=== PATIENT | female | born 1980 | race Hispanic/Latino ===

== ENCOUNTER 2017-02-28 14:35 | Emergency (ER) | payer OTHER ==
[2017-02-28] MEDS ORDERED: SODIUM CHLORIDE 0.9% 1000ML 1,000 ML IV ONE (14:57)
[2017-02-28 15:07] LABS: BASOPHILS % (AUTO) 0.2 % (0.0-5.0); EOSINOPHILS % (AUTO) 0.6 % (0.0-8.0); HEMATOCRIT 32.9 % (36-48); LYMPHOCYTES % (AUTO) 15.7 % (21.0-51.0); MEAN CORPUSCULAR HEMOGLOBIN 24.6 pg (27.0-33.0); MEAN CORPUSCULAR HGB CONC 32.7 g/dL (32.0-36.0); MEAN CORPUSCULAR VOLUME 75.1 fL (79-99); MONOCYTES % (AUTO) 4.6 % (3.0-13.0); NEUTROPHILS % (AUTO) 78.9 % (40.0-77.0); PLATELET COUNT (AUTO) 310 K/uL (130-400); RED BLOOD CELL COUNT(AUTO) 4.38 MIL/uL (4.00-5.50); RED CELL DISTRIBUTION WIDTH 15.7 % (11.0-15.5); WHITE BLOOD COUNT (AUTO) 9.9 K/uL (4.8-10.8)
== END 2017-02-28 17:24 | disposition home or self-care (01) ==
LOC: EDH 14:35
DX: N92.0 Excessive and frequent menstruation with regular cycle (principal)
CPT/HCPCS: 36415; 84702; 85025; 86900; 86901; 96360; 99284; J7030

== ENCOUNTER 2017-03-28 11:43 | Emergency (ER) | payer OTHER ==
[2017-03-28 12:33] LABS: BASOPHILS % (AUTO) 0.2 % (0.0-5.0); EOSINOPHILS % (AUTO) 0.2 % (0.0-8.0); HEMATOCRIT 35.5 % (36-48); LYMPHOCYTES % (AUTO) 11.8 % (21.0-51.0); MEAN CORPUSCULAR HGB CONC 32.8 g/dL (32.0-36.0); MEAN CORPUSCULAR VOLUME 79.3 fL (79-99); MONOCYTES % (AUTO) 3.6 % (3.0-13.0); NEUTROPHILS % (AUTO) 84.2 % (40.0-77.0); PLATELET COUNT (AUTO) 271 K/uL (130-400); RED BLOOD CELL COUNT(AUTO) 4.47 MIL/uL (4.00-5.50); RED CELL DISTRIBUTION WIDTH 21.4 % (11.0-15.5); WHITE BLOOD COUNT (AUTO) 8.7 K/uL (4.8-10.8)
[2017-03-28 12:45] LABS: CREATININE 0.7 mg/dL (0.5-1.5); POTASSIUM 3.8 mmol/L (3.5-5.1)
[2017-03-28 13:06] LABS: APPEARANCE,URINE CLOUDY (CLEAR); BILIRUBIN,URINE NEGATIVE (NEGATIVE); GLUCOSE, URINE (UA) NEGATIVE (NEGATIVE); KETONES,URINE NEGATIVE (NEGATIVE); LEUKOCYTE ESTERASE ,URINE NEGATIVE (NEGATIVE); NITRATE,URINE NEGATIVE (NEGATIVE); OCCULT BLOOD,URINE LARGE (NEGATIVE); PH,URINE 5.5 (5.0-8.0); PROTEIN,URINE TRACE (NEGATIVE); UROBILINOGEN,URINE 0.2 mg/dL (0.2-1.0)
[2017-03-28 13:18] LABS: COLOR,URINE PINK (YELLOW)
[2017-03-28 13:20] LABS: BACTERIA,URINE None Seen /HPF (None Seen); RBC,URINE >100 /HPF (0-1); WBC,URINE None Seen /HPF (0-1)
[2017-03-28 13:21] LABS: SQUAMOUS EPITHELIAL CELL,UR 0-2 /LPF (0-2)
[2017-03-28] MEDS ORDERED: IOPAMIDOL-370 75 ML VIAL IV ONE (15:09)
== END 2017-03-28 16:52 | disposition home or self-care (01) ==
LOC: EDH 11:43
DX: N85.8 Other specified noninflammatory disorders of uterus (principal); K62.5 Hemorrhage of anus and rectum
CPT/HCPCS: 36415; 74177; 76856; 80048; 81001; 84702; 85025; 99285; Q9967

== ENCOUNTER 2017-06-02 06:49 | Day surgery (SDC) | payer OTHER ==
[~2017-06-02] VITALS: Ht 167.6 cm; Wt 62.0 kg
[~2017-06-02 06:49] MED LIST: SODIUM CHLORIDE 0.9% 1000ML 1,000 ML IV ONE
[2017-06-02 07:22] VITALS: BP 123/50
[2017-06-02] MEDS ORDERED: PROPOFOL 10 MG/ML 20ML VIAL IV ONE ×2 (08:27→08:28)
[2017-06-02 08:46] VITALS: BP 86/49
== END 2017-06-02 09:25 ==
LOC: DAH 06:49
PROVIDERS: ATTEND Internal Medicine Gastroenterology
DX: K92.1 Melena (principal); K64.8 Other hemorrhoids; K57.30 Diverticulosis of large intestine without perforation or abscess without bleeding
CPT/HCPCS: 36415; 84703; A4606; J2704; J7030

== ENCOUNTER 2022-06-07 16:52 | Emergency (ER) | payer OTHER ==
[~2022-06-07] VITALS: Ht 165.1 cm; Wt 67.6 kg
[~2022-06-07 16:52] MED LIST changes: -SODIUM CHLORIDE 0.9% 1000ML 1,000 ML IV ONE; +[UNRECOGNIZED DRUG - OTHER] PO
[2022-06-07 17:36] LABS: BASOPHILS % (AUTO) 0.4 % (0.0-5.0); EOSINOPHILS % (AUTO) 0.5 % (0.0-8.0); HEMATOCRIT 36.8 % (36-48); LYMPHOCYTES % (AUTO) 17.8 % (21.0-51.0); MEAN CORPUSCULAR HEMOGLOBIN 24.4 pg (27.0-33.0); MEAN CORPUSCULAR VOLUME 78.8 fL (79-99); MONOCYTES % (AUTO) 6.2 % (3.0-13.0); NEUTROPHILS % (AUTO) 74.6 % (40.0-77.0); PLATELET COUNT (AUTO) 328 K/uL (130-400); RED BLOOD CELL COUNT(AUTO) 4.67 MIL/uL (4.00-5.50); RED CELL DISTRIBUTION WIDTH 17.4 % (11.0-15.5); WHITE BLOOD COUNT (AUTO) 10.9 K/uL (4.8-10.8)
[2022-06-07 17:48] LABS: APPEARANCE,URINE CLEAR (CLEAR); BILIRUBIN,URINE NEGATIVE (NEGATIVE); COLOR,URINE COLORLESS (YELLOW); GLUCOSE, URINE (UA) NEGATIVE (NEGATIVE); KETONES,URINE NEGATIVE (NEGATIVE); LEUKOCYTE ESTERASE ,URINE NEGATIVE Leu/uL (NEGATIVE); NITRATE,URINE NEGATIVE (NEGATIVE); OCCULT BLOOD,URINE NEGATIVE (NEGATIVE); PROTEIN,URINE NEGATIVE (NEGATIVE); UROBILINOGEN,URINE 0.2 mg/dL (0.2-1.0)
[2022-06-07 17:54] LABS: CREATININE 0.8 mg/dL (0.5-1.5); POTASSIUM 3.5 mmol/L (3.5-5.1)
[2022-06-07 17:58] LABS: ALBUMIN 3.9 g/dL (3.5-5.0)
[2022-06-07 20:08] LABS: CREATINE KINASE, TOTAL 38 U/L (21-232); MYOGLOBIN 19 ng/mL (10-92)
[2022-06-07 21:05] VITALS: BP 132/76
== END 2022-06-07 21:18 | disposition home or self-care (01) ==
LOC: EDH 16:52
DX: R55 Syncope and collapse (principal); Z98.890 Other specified postprocedural states
CPT/HCPCS: 36415; 70450; 71045; 80053; 81003; 81025; 82550; 83874; 84484; 85025; 85378; 93005

== ENCOUNTER → 2024-03-29 | Outpatient (CLI) | payer OTHER ==
--- NOTE | 2024-03-29 09:16 | HMCIMG ---
Exam Type: US TRANSVAGINAL NON-OB Clinical Information: leiomyoma of ut Comparison: None Findings: Uterus is retroverted. It shows multiple exophytic fibroids, largest one posterior fundal measuring approximately 5 cm. Endometrial lining is normal in thickness at 8 mm. Bilateral complex ovarian cysts are seen, 7.3 x 9.7 cm on the right and 6.6 x 6 cm on the left. Impression: Uterine fibroids. Bilateral complex ovarian cysts. Follow-up advised.
--- NOTE | 2024-03-29 10:03 | HMCIMG ---
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 Endometrial lining is normal in thickness at 6 mm. The ovaries are obscured. IMPRESSION: Multiple uterine fibroids.
== END | disposition home or self-care (01) ==
LOC: RAH 07:35
PROVIDERS: ATTEND Obstetrics & Gynecology
DX: N83.291 Other ovarian cyst, right side (principal); N83.292 Other ovarian cyst, left side; D25.9 Leiomyoma of uterus, unspecified
CPT/HCPCS: 76830; 76856

== ENCOUNTER → 2024-06-12 | Outpatient (CLI) | payer OTHER ==
[~2024-06-12] MED LIST changes: +IOHEXOL-350 75 ML VIAL IV ONE
--- NOTE | 2024-06-12 11:47 | HMCIMG ---
Exam Type: CT ABDOMEN/PELVIS W/CONTRAST Clinical Information: Other specified noninflammatory disorders of uterus Comparison: Ultrasound March 29, 2024 Contrast: 100 cc's Isovue 370 IV, no complications or adverse reactions CT Dose Index (CTDI): 31.60 mGy Dose Length Product (DLP): 1740.80 total mGy-cm Findings: No evidence of nephro or ureterolithiasis is found. No hydronephrosis or ureteral dilatation is seen. The lung bases are clear. The stomach is unremarkable. It shows no wall thickening. No gross ulceration is seen. It is not overly distended. There are no surrounding inflammatory changes. No wall lesions are identified to suggest cancer. The spleen is unremarkable. It is not enlarged. The pancreas shows normal anatomy. It is not fatty replaced. It shows no lesions. The pancreatic duct is not dilated. The gallbladder is unremarkable. It shows no cholelithiasis. The gallbladder wall is normal in thickness. There is no pericholecystic fluid. The is no acute or chronic inflammation noted. The adrenal glands are unremarkable. There is no enlargement. No lesions are noted. The liver is unremarkable. It shows no focal masses. The appendix is unremarkable. It shows no evidence of inflammation. No appendicolith is seen. The small bowel is unremarkable. There is no evidence of dilatation to suggest obstruction. No evidence of adynamic ileus is seen. There is no small bowel wall thickening to suggest enteritis. The colon is unremarkable. The urinary bladder is unremarkable. There is no wall thickening to suggest tumor or inflammation. There are no intraluminal calculi. There are no diverticula. There is no evidence of chronic bladder outlet obstruction. There is no evidence of urinary bladder distention to suggest urinary retention. Bilateral ovarian slightly complex cysts are seen, stable, the one on the left measuring 6.4 cm, one on the right measuring 9 cm. The bony and vascular structures are unremarkable for the patient's age. IMPRESSION: Stable bilateral ovarian cysts. This study was performed using dose reduction techniques to include automated exposure control and/or adjustment of the mA and/or kV according to patient size.
== END | disposition home or self-care (01) ==
LOC: RAH 10:26
PROVIDERS: ATTEND Student in an Organized Health Care Education/Training Program
DX: N83.201 Unspecified ovarian cyst, right side (principal); N83.202 Unspecified ovarian cyst, left side; N85.8 Other specified noninflammatory disorders of uterus
CPT/HCPCS: 74177; Q9967